=== PATIENT | male | born 1980 | race African-American/Black ===

== ENCOUNTER 2017-04-17 15:10 | Emergency (ER) | payer SELFPAY ==
[2017-04-17 15:14] VITALS: BP 120/80; PULSE 83; TEMP 98; BMI 23.1
--- NOTE | 2017-04-17 15:19 | PDOC ---
Rapid Medical Evaluation Time Seen by Provider: 04/17/17 15:12 Medical Evaluation: 04/17/17 15:13 I have performed a brief in-person evaluation of this patient. The patient presents with a chief complaint of: Productive cough, pleuritic chest pain x2 weeks. Diarrhea x2 days Pertinent physical exam findings: HEENT: sinus tenderness PULM: Lungs CTAB ABD: SNTND I have ordered the following: CXR The patient will proceed to the ED for further evaluation. Discharge Disposition - Diagnosis Cough - Referrals - Patient Instructions - Post Discharge Activity
--- NOTE | 2017-04-17 15:28 | PDOC ---
History of Present Illness - General Chief Complaint: Cold Symptoms Stated Complaint: Cold Symptoms Time Seen by Provider: 04/17/17 15:12 History Source: Patient - History of Present Illness Timing/Duration: reports: week Associated Symptoms: reports: cough, nasal congestion, nasal drainage. denies: earache, fever/chills, muscle aches, shortness of breath, sore throat, wheezing Past History - Past Medical History Allergies/Adverse Reactions: Allergies Allergy/AdvReac Type Severity Reaction Status Date / Time No Known Allergies Allergy Verified 04/17/17 15:14 Home Medications: Ambulatory Orders NK [No Known Home Medication] 04/17/17 Asthma: Yes COPD: No - Suicide/Smoking/Psychosocial Hx Smoking History: Current every day smoker Number of Cigarettes Smoked Daily: 6 Information on smoking cessation initiated: No Hx Alcohol Use: No Drug/Substance Use Hx: No Substance Use Type: None Review of Systems - Review of Systems Constitutional: No: Fever Respiratory: Yes: Cough. No: Shortness of Breath, Wheezing *Physical Exam - Vital Signs Last Vital Signs Temp Pulse Resp BP Pulse Ox 98.0 F 83 20 120/80 100 04/17/17 15:11 04/17/17 15:11 04/17/17 15:11 04/17/17 15:11 04/17/17 15:11 - Physical Exam General Appearance: Yes: Appropriately Dressed. No: Apparent Distress HEENT: positive: Normal ENT Inspection, Normal Voice. negative: Scleral Icterus (R), Scleral Icterus (L) Neck: positive: Supple. negative: Lymphadenopathy (R), Lymphadenopathy (L) Respiratory/Chest: positive: Lungs Clear, Normal Breath Sounds. negative: Respiratory Distress Cardiovascular: positive: Regular Rate, S1, S2 Integumentary: positive: Dry, Warm Neurologic: positive: Fully Oriented, Alert, Normal Mood/Affect Medical Decision Making - Medical Decision Making 04/17/17 15:26 36-year-old male, smoker, here with nonproductive cough with rhinorrhea, congestion 1 week. No shortness of breath, f/c. Patient well-appearing and stable with unremarkable exam. Chest x-ray, ordered from triage and read as negative by radiology. DC with supportive treatment for URI and smoking cessation advisement 04/17/17 15:58 *DC/Admit/Observation/Transfer Diagnosis at time of Disposition: URI (upper respiratory infection) Qualifiers: URI type: unspecified viral URI Qualified Code(s): J06.9 - Acute upper respiratory infection, unspecified - Discharge Dispostion Disposition: HOME Condition at time of disposition: Good - Referrals - Patient Instructions Printed Discharge Instructions: DI for Viral Upper Respiratory Infection -- Adult - Post Discharge Activity
== END 2017-04-17 16:05 | disposition home or self-care (01) ==
LOC: JERFT 15:10
DX: J06.9 Acute upper respiratory infection, unspecified (principal); B97.89 Other viral agents as the cause of diseases classified elsewhere; F17.210 Nicotine dependence, cigarettes, uncomplicated
CPT/HCPCS: 71046-TC; 99281-25